=== PATIENT | male | born 1985 | race Caucasian/White ===

== ENCOUNTER 2019-09-07 00:18 | Emergency (ER) | payer OTHER ==
[~2019-09-07] VITALS: Ht 185.4 cm; Wt 115.4 kg
--- NOTE | 2019-09-07 00:33 | NUR ---
PT AMBULATED TO THE ROOM W/ A STEADY GAIT.
--- NOTE | 2019-09-07 00:40 | NUR ---
THIS IS A 34 YO M W/ C/O N/V SINCE 1900 THIS EVENING AFTER EATING DINNER. PT DENIES ABD PAIN/CP/SOB. PT DENIES CHANGES IN DIET. STATES CAN'T HOLD WATER DOWN. VS STABLE. NADN. PT HAS EMESIS BAG. BLANKET PROVIDED FOR COMFORT. CONNECTED TO MONITORING. RESTING ON [employer] W/ CALL LIGHT IN REACH. AWAITING ED EVAL.
[2019-09-07] MEDS ORDERED: ONDANSETRON 2MG/ML, 2ML ONE (00:55)
[2019-09-07] MEDS ORDERED: PROPOFOL 10 MG/ML, 20ML IVPush ONE (01:00)
[2019-09-07] MEDS ORDERED: ONDANSETRON 2MG/ML, 2ML IVPush ONE (01:00)
[2019-09-07] MEDS ORDERED: SODIUM CHLORIDE 0.9% 1,000ML IVBOLUS ONE (01:00)
[2019-09-07] MEDS ORDERED: SODIUM CHLORIDE FLUSH 10ML SYR IVF ONE (01:00)
--- NOTE | 2019-09-07 01:01 | NUR ---
Spoke with Nicole from [facility] and she states that she will come in. Asked to come in by Dr. Harris.
[2019-09-07] MEDS ORDERED: PROPOFOL 10 MG/ML, 20ML ONE ×2 (01:16→02:07)
--- NOTE | 2019-09-07 01:37 | NUR ---
REPORT RECEIVED AND CARE ASSUMED. PT PREPPED FOR PROCEDURAL SEDATION. PT STATES HE FEELS LIKE SOMETHING, POSSIBLY STEAK, IS STUCK IN HIS THROAT. GI CONSULT AT BEDSIDE TO DISCUSS ENDOSCOPY. AWAITING ENDO TEAM.
--- NOTE | 2019-09-07 02:20 | NUR ---
PROCEDURE STARTED AT 0155. ERP TITRATED A TOTAL OF 480 MG PROPOFOL DURING PROCEDURE. PT TOLERATED WELL. PT RESPONSIVE TO PAINFUL STIMILUS BUT REMAINS VERY DROWSY. NOT FOLLOWING COMMANDS AT THIS TIME. RN REMAINS AT BEDSIDE UNTIL PT BACK TO BASELINE.
--- NOTE | 2019-09-07 02:40 | NUR ---
PT MOVING ALL EXTREMITIES. FOLLWOING COMMANDS. AWAKE AND ANSWERING QUESTIONS. PT WILL BE D/C AFTER FULLY RECOVERED. AT BEDSIDE.
--- NOTE | 2019-09-07 03:03 | NUR ---
PT TOLERATING PO ICE CHIPS WELL AT THIS TIME. VSS. WILL D/C WHEN ABLE.
[2019-09-07 03:29] VITALS: BP 109/86
== END 2019-09-07 03:32 | disposition home or self-care (01) ==
LOC: ED 01:43
DX: T18.128A Food in esophagus causing other injury, initial encounter (principal); Y93.89 Activity, other specified; Y99.8 Other external cause status; Y92.009 Unspecified place in unspecified non-institutional (private) residence as the place of occurrence of the external cause
CPT/HCPCS: 43239; 43247; 88305; 99152; 99153; 99285; J2405; J7030

== ENCOUNTER 2019-10-05 10:22 | Outpatient (CLI) | payer OTHER | END 2019-10-05 23:59 | disposition home or self-care (01) | LOC: RAD 10:22 | PROVIDERS: ATTEND Family Medicine | DX: M79.652 Pain in left thigh (principal) ==